=== PATIENT | female | born 1945 | race Caucasian/White ===

== ENCOUNTER 2021-05-23 13:20 | Emergency (ER) | payer MEDICARE, OTHER ==
[2021-05-23 13:37] LABS: Bilirubin Small (Negative); Blood, Urine Negative (Negative); Clarity Cloudy (Clear); Glucose, Urine (Dipstick) Negative (Negative); Ketone, Urine Trace mg/dL (Negative); Leukocyte Trace (Negative); Nitrite Negative (Negative); Protein, Urine (Dipstick) Negative (Neg-Trace); Specific Gravity, Urine 1.025 (1.005-1.030); pH, Urine 5.5 (5.0-9.0)
[2021-05-23 13:42] LABS: RBC/HPF 0-3 HPF (0-3)
[2021-05-23 13:43] LABS: Bacteria/HPF 3+ HPF (None Seen); Mucous/LPF 4+ LPF (<2+)
== END 2021-05-23 14:10 | disposition home or self-care (01) ==
LOC: BURERS 13:20
DX: N39.0 Urinary tract infection, site not specified (principal); I10 Essential (primary) hypertension; K21.9 Gastro-esophageal reflux disease without esophagitis
CPT/HCPCS: 81003; 81015; 87086; 99283

== ENCOUNTER 2021-07-21 13:38 | Emergency (ER) | payer MEDICARE, OTHER ==
[2021-07-21 13:55] LABS: Bilirubin Negative (Negative); Blood, Urine Negative (Negative); Glucose, Urine (Dipstick) Negative (Negative); Ketone, Urine Negative (Negative); Leukocyte Trace (Negative); Nitrite Negative (Negative); Protein, Urine (Dipstick) Negative (Neg-Trace); Specific Gravity, Urine 1.015 (1.005-1.030); pH, Urine 7.5 (5.0-9.0)
[2021-07-21 13:56] LABS: Clarity Hazy (Clear)
[2021-07-21] MEDS ORDERED: Ondansetron PF 4 MG/2 ML Vial ONE (13:56)
[2021-07-21 14:02] LABS: #Eosinphils 0.2 thou/uL (0.0-0.7); #Lymphocytes 1.5 thou/uL (1.20-3.40); #Monocytes 0.4 thou/uL (0.11-0.59); #Neutrophils 4.3 thou/uL (1.40-6.50); %Basophils 0.5 % (0.0-1.0); %Eosinophils 2.4 % (0.0-10.0); %Lymphocytes 23.8 % (21.0-51.0); %Monocytes 6.5 % (0.0-10.0); %Neutrophils 66.8 % (42.0-75.0); Hemoglobin 13.3 g/dL (12.0-16.0); Mean Corpuscular HGB CONC 33.6 g/dL (32.0-36.0); Mean Corpuscular Hemoglobin 31.3 pg (27.0-31.0); Mean Corpuscular Volume 93.1 fL (78.0-98.0); Mean Platelet Volume 7.9 fL (7.4-10.4); Platelet Count 259 thou/uL (130-400); RBC Distribution Width 11.6 % (11.5-14.5); Red Blood Cell (RBC) Count 4.26 mill/uL (4.20-5.40); White Blood Cell (WBC) Count 6.5 thou/uL (4.8-10.8)
[2021-07-21 14:03] LABS: Bacteria/HPF 3+ HPF (None Seen); RBC/HPF None Seen HPF (0-3); Squamous Epithelial 0-3 HPF (0-3); WBC/HPF 0-3 HPF (0-3)
[2021-07-21 14:21] LABS: ALT (SGPT) 15 U/L (8-55); AST (SGOT) 20 U/L (5-34); Albumin 4.5 g/dL (3.4-4.8); Alkaline Phosphatase 83 U/L (40-110); Anion Gap 14 mmol/L (10-20); BUN (Urea Nitrogen) 19 mg/dL (9.8-20.1); Bilirubin, Total 0.4 mg/dL (0.2-1.2); Calc. Creatinine Clearance 0 mL/min (70-130); Calcium 9.4 mg/dL (7.8-10.44); Carbon Dioxide 28 mmol/L (23-31); Chloride 102 mmol/L (98-107); Globulin 3.2 g/dL (2.4-3.5); Glucose 124 mg/dL (83-110); Lipase 18 U/L (8-78); Potassium 3.6 mmol/L (3.5-5.1); Protein, Total 7.7 g/dL (5.8-8.1); Sodium 140 mmol/L (136-145)
== END 2021-07-21 14:55 | disposition home or self-care (01) ==
LOC: BURERS 13:38
DX: N30.00 Acute cystitis without hematuria (principal); N20.0 Calculus of kidney; K80.20 Calculus of gallbladder without cholecystitis without obstruction; K59.00 Constipation, unspecified; I44.0 Atrioventricular block, first degree; I10 Essential (primary) hypertension; K21.9 Gastro-esophageal reflux disease without esophagitis; F03.90 Unspecified dementia, unspecified severity, without behavioral disturbance, psychotic disturbance, mood disturbance, and anxiety; Z79.82 Long term (current) use of aspirin; Z79.899 Other long term (current) drug therapy
CPT/HCPCS: 36415; 74176; 80053; 81003; 81015; 83605; 83690; 85025; 87086; 93005; 96374; J2405

== ENCOUNTER 2022-02-25 04:38 | Emergency (ER) | payer MEDICARE, OTHER ==
[2022-02-25 05:26] LABS: #Eosinphils 0.1 thou/uL (0.0-0.7); #Lymphocytes 1.2 thou/uL (1.20-3.40); #Monocytes 0.3 thou/uL (0.11-0.59); #Neutrophils 3.7 thou/uL (1.40-6.50); %Basophils 0.3 % (0.0-1.0); %Eosinophils 2.6 % (0.0-10.0); %Lymphocytes 22.1 % (21.0-51.0); %Monocytes 5.7 % (0.0-10.0); %Neutrophils 69.2 % (42.0-75.0); Hemoglobin 13.8 g/dL (12.0-16.0); Mean Corpuscular HGB CONC 35.9 g/dL (32.0-36.0); Mean Corpuscular Hemoglobin 32.1 pg (27.0-31.0); Mean Corpuscular Volume 89.5 fL (78.0-98.0); Platelet Count 192 thou/uL (130-400); RBC Distribution Width 11.7 % (11.5-14.5); Red Blood Cell (RBC) Count 4.31 mill/uL (4.20-5.40); White Blood Cell (WBC) Count 5.4 thou/uL (4.8-10.8)
[2022-02-25] MEDS ORDERED: Metoclopramide HCl 10 MG/2 ML VIAL ONE (05:26)
[2022-02-25 05:43] LABS: ALT (SGPT) 27 U/L (8-55); AST (SGOT) 23 U/L (5-34); Albumin 4.3 g/dL (3.4-4.8); Alkaline Phosphatase 94 U/L (40-110); Anion Gap 14 mmol/L (10-20); BUN (Urea Nitrogen) 12 mg/dL (9.8-20.1); Bilirubin, Total 0.5 mg/dL (0.2-1.2); Calc. Creatinine Clearance 0 mL/min (70-130); Carbon Dioxide 23 mmol/L (23-31); Chloride 108 mmol/L (98-107); Estimated GFR 89; Globulin 3.2 g/dL (2.4-3.5); Glucose 121 mg/dL (83-110); Potassium 3.7 mmol/L (3.5-5.1); Protein, Total 7.5 g/dL (5.8-8.1); Sodium 141 mmol/L (136-145)
[2022-02-25 06:15] LABS: Bilirubin Negative (Negative); Blood, Urine Negative (Negative); Clarity Clear (Clear); Glucose, Urine (Dipstick) Negative (Negative); Ketone, Urine Negative (Negative); Leukocyte Negative (Negative); Nitrite Negative (Negative); Protein, Urine (Dipstick) Trace mg/dL (Neg-Trace); Specific Gravity, Urine 1.015 (1.005-1.030); Urobilinogen 0.2 mg/dL (Less than 2); pH, Urine 6.5 (5.0-9.0)
[2022-02-25 06:21] LABS: CKMB 1.7 ng/mL (0-6.6)
[2022-02-25] MEDS ORDERED: diphenhydrAMINE 50 MG/ML VIAL ONE (07:36)
[2022-02-25] MEDS ORDERED: Ondansetron PF 4 MG/2 ML Vial ONE (07:36)
[2022-02-25] MEDS ORDERED: Aspirin Chewable 81 MG TAB ONE (10:07)
[2022-02-25] MEDS ORDERED: Lorazepam 0.5 MG TAB ONE (12:52)
== END 2022-02-25 13:26 | disposition short-term general hospital (02) ==
LOC: BURERS 04:38
DX: R42 Dizziness and giddiness (principal); R29.700 NIHSS score 0; I44.0 Atrioventricular block, first degree; I10 Essential (primary) hypertension; K21.9 Gastro-esophageal reflux disease without esophagitis; F03.90 Unspecified dementia, unspecified severity, without behavioral disturbance, psychotic disturbance, mood disturbance, and anxiety; Z87.442 Personal history of urinary calculi; Z79.82 Long term (current) use of aspirin; Z79.899 Other long term (current) drug therapy
CPT/HCPCS: 36415; 70450; 80053; 81003; 82553; 83880; 84484; 85025; 96374; 96375; J1200; J2405; J2765